=== PATIENT | male | born 1950 | race Caucasian/White ===

== ENCOUNTER 2017-05-21 19:03 | Inpatient (IN) | payer OTHER, SELFPAY ==
[2017-05-21 20:21] LABS: #Neutrophils 10.2 thou/uL (1.40-6.50); %Basophils 0.2 % (0.0-1.0); %Eosinophils 0.4 % (0.0-10.0); %Lymphocytes 14.9 % (21.0-51.0); %Monocytes 7.4 % (0.0-10.0); %Neutrophils 77.2 % (42.0-75.0); Hemoglobin 12.8 g/dL (14.0-18.0); Mean Corpuscular HGB CONC 31.8 g/dL (32.0-36.0); Mean Corpuscular Hemoglobin 28.8 pg (27.0-31.0); Mean Corpuscular Volume 90.5 fl (80.0-94.0); Mean Platelet Volume 7.6 fL (7.4-10.4); Platelet Count 304 thou/uL (130-400); RBC Distribution Width 12.2 % (11.5-14.5); Red Blood Cell (RBC) Count 4.43 mill/uL (4.70-6.10); White Blood Cell (WBC) Count 13.2 thou/uL (4.8-10.8)
[2017-05-21 20:42] LABS: ALT (SGPT) 53 U/L (8-55); AST (SGOT) 32 U/L (5-34); Albumin 3.2 g/dL (3.4-4.8); Alkaline Phosphatase 93 U/L (40-150); Anion Gap 14 mmol/L (10-20); BUN (Urea Nitrogen) 31 mg/dL (8.4-25.7); Bilirubin, Total 0.5 mg/dL (0.2-1.2); Calc. Creatinine Clearance 0 mL/min (70-130); Calcium 9.2 mg/dL (7.8-10.44); Carbon Dioxide 23 mmol/L (23-31); Chloride 102 mmol/L (98-107); Estimated GFR-MDRD 65; Globulin 4.6 g/dL (2.4-3.5); Glucose 107 mg/dL (80-115); Potassium 4.5 mmol/L (3.5-5.1); Protein, Total 7.8 g/dL (5.8-8.1); Sodium 134 mmol/L (136-145)
[2017-05-21 20:50] LABS: INR-International Normal Ratio 1.1; PTT 31.1 SEC (22.9-36.1); Prothrombin Time 14.4 SEC (12.0-14.7)
[2017-05-21] MEDS ORDERED: Pantoprazole 40 MG VIAL ONE ×2 (21:45→22:10)
[2017-05-21] MEDS ORDERED: Pantoprazole 80 MG, Admixture Fee 1 EACH in Sodium Chloride 0.9% 100 ML IVP SCH (22:30)
[2017-05-22] MEDS ORDERED: Ondansetron HCl/PF 4 MG/2 ML Vial IVP PRN ×2 (00:32→02:16)
[2017-05-22] MEDS ORDERED: Dextrose 5 % And 0.9 % NaCl 1,000 ML IV SCH (00:32)
[2017-05-22] MEDS ORDERED: Ondansetron ODT 4 MG TAB SL PRN (00:32)
[2017-05-22 00:41] VITALS: BMI 25.4
[2017-05-22] MEDS: Sodium Chloride 0.9% 1,000 ML IV SCH ×3 (04:00→19:52)
[2017-05-22 05:16] LABS: #Lymphocytes 3.5 thou/uL (1.20-3.40); #Monocytes 0.6 thou/uL (0.11-0.59); #Neutrophils 4.6 thou/uL (1.40-6.50); %Basophils 0.2 % (0.0-1.0); %Eosinophils 0.4 % (0.0-10.0); %Monocytes 6.9 % (0.0-10.0); %Neutrophils 52.4 % (42.0-75.0); Hemoglobin 9.8 g/dL (14.0-18.0); Mean Corpuscular HGB CONC 32.2 g/dL (32.0-36.0); Mean Corpuscular Volume 90.2 fl (80.0-94.0); Mean Platelet Volume 7.6 fL (7.4-10.4); Platelet Count 211 thou/uL (130-400); RBC Distribution Width 12.1 % (11.5-14.5); Red Blood Cell (RBC) Count 3.37 mill/uL (4.70-6.10); White Blood Cell (WBC) Count 8.7 thou/uL (4.8-10.8)
[2017-05-22 05:24] LABS: ALT (SGPT) 33 U/L (8-55); AST (SGOT) 19 U/L (5-34); Albumin 2.6 g/dL (3.4-4.8); Alkaline Phosphatase 66 U/L (40-150); Anion Gap 9 mmol/L (10-20); BUN (Urea Nitrogen) 32 mg/dL (8.4-25.7); Bilirubin, Total 0.2 mg/dL (0.2-1.2); Calc. Creatinine Clearance 98 mL/min (70-130); Carbon Dioxide 23 mmol/L (23-31); Chloride 109 mmol/L (98-107); Estimated GFR-MDRD 86; Globulin 3.3 g/dL (2.4-3.5); Glucose 80 mg/dL (80-115); Potassium 4.3 mmol/L (3.5-5.1); Protein, Total 5.9 g/dL (5.8-8.1); Sodium 137 mmol/L (136-145)
--- NOTE | 2017-05-22 07:21 | HP ---
PRIMARY CARE PHYSICIAN: Dr. Azul CHIEF COMPLAINT: Vomiting blood. HISTORY OF PRESENT ILLNESS: Mr. Lazo is a pleasant 66-year-old male who came to [facility] emergency department after vomiting dark blood 2 times. The first time he said it looked kind of like coffee grounds, the second time it was more bloody and darker blood. He has had one bowel movem ent that looked melanotic and turned the water in the toilet red. He denies any fever, chills, chest pain or shortness of breath. He denies any abdominal pain, he does have a history of psoriatic arthritis and has had a recent flar e the last week that he took some Naprosyn or ibuprofen for interchanging. Workup in the emergency department showed a hemoglobin 12.8, down from 14+ a few months ago. BUN was elevated at 31, he was tachycardic initially on presentation at 119, improved to 97 with IV fluids. Gastric occult blood testing was positive for blood. We were subsequently called for admission. In the emergency room, he got [address] Cummins from GI was consulted and recommended Protonix drip and that was started. PAST MEDICAL HISTORY: 1. Psoriatic arthritis. 2. Coronary artery disease status post CRUST SORTER and stent placement 10 years ago with no further problems . 3. Hypertension. 4. Athlete's foot/tinea pedis. 5. Hyperlipidemia. 6. Benign prostatic hypertrophy. PAST SURGICAL HISTORY: PTCA with stent placement, some 10 years ago. HOME MEDICATIONS: 1. Tamsulosin 0.4 mg p.o. daily. 2. Aspirin 81 mg daily. 3. Lisinopril/HCTZ 20/12.5 daily. 4. Terbinafine 250 mg daily as needed for athlete's foot. 5. Atorvastatin 40 mg p.o. at bedtime. ALLERGIES: CODEINE causes him to be wired. SULFA causes nausea and vomiting. FAMILY HISTORY: Significant for dad with coronary artery disease and cancer. Mom had diabetes angelic willis type 2. SOCIAL HISTORY: Negative for habits x3. He did smoke basically 2 packs per day for some 35 years an d quit under a year ago. REVIEW OF SYSTEMS: A 10-point review of systems was performed and negative for all other systems exc ept as noted per HPI. PHYSICAL EXAMINATION: VITAL SIGNS: Temperature 97.2, pulse 119 down to 97, blood pressure 123/67, respiratory 18, satting 95% on room air. GENERAL: He is awake. He is alert. He is oriented x3. He is a well-developed, well-nourished male who appears to be in no distress. HEENT: Normocephalic, atraumatic. Pupils equal, round, and reactive to light bilaterally, mucous me mbranes are moist without visible lesions or thrush. NECK: Supple, without lymphadenopathy, no JVD, no thyromegaly. LUNGS: Clear. He has no wheezing, no rales, no rhonchi. No prolonged expiratory phase. There is g ood air movement. Symmetrical chest excursion. CARDIOVASCULAR: He is slightly tachycardic, but regular. He has normal S1 and S2. I did not apprec iate murmurs. ABDOMEN: Soft, is nontender, nondistended, no masses, no rebound, rigidity or guarding. EXTREMITIES: No edema. SKIN: Warm, moist, well perfused. There are no rashes, no lesions. MUSCULOSKELETAL: Normal to inspection. He has no acute inflamed arthritis, no palpable effusions. NEUROLOGIC: Cranial nerves II-XII grossly intact. He has no focal neurologic deficits. He has norm al speech pattern and 5/5 strength. LABORATORY DATA: Sodium 134, potassium 4.5, chloride 102, bicarbonate 23, BUN 31, creatinine 1.14, g lucose 107, calcium 9.2. Liver functions are normal. Albumin is a little low at 3.2. INR is 1.1 an d CBC showed white count 13.2, hemoglobin of 12.8, hematocrit of 40.1, platelet count 304,000. His w jammie blood cell count does have a normal differential. RADIOGRAPHIC STUDIES: None. ASSESSMENT AND PLAN: 1. Hematemesis, the patient has a recent spike in his nonsteroidal anti-inflammatory drug usage due to his recent inflammatory arthritis. He does not take any acid suppression, denies any abdominal pa in. Suspect he has gastritis or some kind of a gastric type ulcer. Dr. Cummins has been consulted. W e will get serial H&Hs, and will follow up with Dr. Cummins's recommendations. 2. Acute blood loss anemia: The patient was in normal range a few months ago, now down to 12.8. I expect it to be lower as he gets more hydration done. We will continue to follow. 3. History of psoriatic arthritis. 4. History of coronary artery disease, asymptomatic. 5. Benign prostatic hypertrophy, on tamsulosin, which we will continue. 6. Hypertension, lisinopril/HCTZ, we will continue. 7. Hyperlipidemia on atorvastatin, we will continue.
[2017-05-22] MEDS: Pantoprazole 80 MG in Sodium Chloride 0.9% 100 ML IVP SCH ×2 (08:19→19:52)
--- NOTE | 2017-05-22 11:59 | OP ---
DATE OF PROCEDURE: 05/22/2017 PROCEDURE: Esophagogastroduodenoscopy with control of hemorrhage and biopsy. PREOPERATIVE DIAGNOSIS: Upper gastrointestinal bleed. OPERATIVE NOTE: Informed consent was obtained from the patient. He was sedated with total intraveno us anesthesia. The bite block was placed and the endoscope was advanced easily to the second portion of the duodenum and retroflexion was performed in the stomach. The esophagus was normal. The GE ju nction was normal. The stomach had a large 4 cm ulcer in the anterior antrum. This had a large broa d based fibrotic adherent clot in the base of ulcer. The edges of the ulcer were injected with epine phrine 1:10,000 with 1 mL per quadrant in four quadrants. The ulcer base was then washed extensively with irrigation; however, the clot would not dislodge. The clot was suctioned with the tip of the e ndoscope and again, the clot remained adherent. This was a fibrous appearing clot and did not appear particularly fresh. There were no focal areas to suggest one particular area to focus on indicated underlying vessel for electrocautery. The edges of the ulcer were biopsied and also biopsies were ob tained from the antrum and body to rule out H. pylori. The ulcer edges were biopsied to rule out mal ignancy; however, the ulcer itself does not appear malignant. The pylorus and first and second porti ons of the duodenum were normal. IMPRESSION: 1. Large 4 cm ulcer in the anterior antrum. There was an adherent fibrotic clot broadbased in the u lcer. The ulcer was injected with epinephrine and the clot was attempted to be dislodged with irriga tion and suction; however, the clot remained adherent. No focal vessel underneath could therefore be identified for definitive treatment with cautery. Biopsies were obtained from the ulcer edge to rul e out malignancy. Biopsies were obtained from the stomach, antrum and body to rule out H. pylori. 2. Otherwise normal esophagogastroduodenoscopy. RECOMMENDATIONS: 1. Await histopathology. 2. Continue proton pump inhibitor IV drip for 72 hours as definitive cautery to the underlying vesse l could not be achieved. 3. Repeat EGD in 4-6 weeks to verify ulcer healing. Consider repeat EGD in 2-3 days to reassess [facility] rebleeding risk before discharge. 4. Start clear liquid diet today.
--- NOTE | 2017-05-22 12:10 | CON ---
DATE OF CONSULTATION: 05/22/2017 CHIEF COMPLAINT: Vomited blood. HISTORY OF PRESENT ILLNESS: Mr. Lazo is a 66-year-old man who yesterday morning vomited coffee isabela und material. He was riding in the car on the way home and then vomited again on the side of the sushma d, and did not see the color of the emesis. Later in the afternoon, he vomited again and at this samy e, this was a large amount of red blood. He felt dizzy and lightheaded and had to lie down on the fl oor so that he would not pass out. He came to the emergency room, he was found to be tachycardic and he received a couple liters of saline with symptomatic improvement. He had two bowel movements sinc e admission to the hospital, which was black. He feels much better now. He still has some epigastri c burning abdominal pain which has been present for the last 2 days. He takes occasional Aleve aroun d once per month for psoriatic arthritis. No other NSAIDs. He does take aspirin 81 mg daily. PAST MEDICAL HISTORY: 1. Psoriatic arthritis. 2. Coronary artery disease. He had stent placement to the RCA 10 years ago. 3. Hypertension. 4. Hyperlipidemia. 5. BPH. 6. Tinea pedis. PAST SURGICAL HISTORY: Coronary stent placement. FAMILY HISTORY: Positive for lung cancer in his father. SOCIAL HISTORY: Quit smoking 1 year ago, but smoked 2 packs per day prior to that. No alcohol or dr ugs. ALLERGIES: CODEINE and SULFA. OUTPATIENT MEDICATIONS: Aspirin 81 mg daily, Flomax, lisinopril with hydrochlorothiazide, terbinafin e, and atorvastatin. REVIEW OF SYSTEMS: Negative x10 systems reviewed except as stated in the history of present illness. PHYSICAL EXAMINATION: VITAL SIGNS: Temperature 98.1, pulse 88 today. He was tachycardic in 110s on presentation to the ER , blood pressure 124/59. GENERAL: He is in no acute distress, alert and oriented x3. HEENT: Eyes have no scleral icterus. OROPHARYNX: Clear without lesions. NECK: No cervical or supraclavicular lymphadenopathy. NEUROLOGIC: Cranial nerves are grossly intact. LUNGS: Clear to auscultation bilaterally. HEART: Regular rate and rhythm without murmur. ABDOMEN: Soft, minimal tenderness in the epigastric region without guarding. Bowel sounds are prese nt. EXTREMITIES: No lower extremity edema. LABORATORY DATA: White blood cell count 8.7, hemoglobin on presentation was 12.8 down to 9.8 today, platelets 211. INR 1.1, BUN 32, creatinine 0.89, bilirubin 0.2, AST 19, ALT 33, alkaline phosphatase 66, albumin 2.6. IMPRESSION: 1. Acute upper gastrointestinal bleed with hemodynamic compromise with presyncopal episode and tachy cardia on presentation. Symptomatically and hemodynamically, he improved after normal saline bolus. He was started on proton pump inhibitor drip last night. He is feeling much better this morning. H e takes occasional NSAIDs, but not enough to expect source for expected peptic ulcer. He does take a spirin 81 mg daily. 2. Anemia with acute blood loss. 3. Coronary artery disease on aspirin 81 mg daily. 4. Hypoalbuminemia of undetermined etiology at this time. RECOMMENDATIONS: 1. Proton pump inhibitor drip. 2. Esophagogastroduodenoscopy today.
[2017-05-22] MEDS ORDERED: Lidocaine 1% PF 5 ML VIAL ONE (12:12)
[2017-05-22] MEDS ORDERED: Propofol 200 MG/20 ML VIAL ONE (12:12)
--- NOTE | 2017-05-22 13:07 | PDOC.PN ---
- Subjective Encounter Start Date: 05/22/17 Encounter Start Time: 12:00 Subjective: feels better, no sob or abd pain -: no nausea - Objective Resuscitation Status: Resuscitation Status FULL:Full Resuscitation MAR Reviewed: Yes Vital Signs & Weight: Vital Signs (12 hours) Temp Pulse Resp BP Pulse Ox 05/22/17 12:12 98.3 F 85 20 180/77 H 100 05/22/17 08:19 98.1 F 88 16 97 05/22/17 07:15 98.1 F 88 16 124/59 L 97 05/22/17 05:42 98.8 F 87 16 05/22/17 04:01 98.8 F 87 16 117/58 L 97 Weight Weight 182 lb 4.8 oz I&O: 05/21/17 05/22/17 05/23/17 06:59 06:59 06:59 Intake Total 58 Balance 58 Result Diagrams: 05/23/17 04:53 05/23/17 04:53 Phys Exam - Physical Examination Constitutional: NAD HEENT: PERRLA, moist MMs Neck: no JVD, supple Respiratory: no wheezing, no rales Cardiovascular: RRR, no significant murmur Gastrointestinal: soft, non-tender, no distention, positive bowel sounds Musculoskeletal: no edema, pulses present Neurological: non-focal, moves all 4 limbs Psychiatric: A&O x 3 Dx/Plan (1) PUD (peptic ulcer disease) Code(s): K27.9 - PEPTIC ULC, SITE UNSP, UNSP AC OR CHR, W/O HEMOR OR PERF Status: Acute (2) Acute blood loss anemia Code(s): D62 - ACUTE POSTHEMORRHAGIC ANEMIA Status: Acute (3) GI bleed Code(s): K92.2 - GASTROINTESTINAL HEMORRHAGE, UNSPECIFIED Status: Acute Qualifiers: GI bleed type/associated pathology: gastric ulcer Qualified Code(s): K25.4 - Chronic or unspecified gastric ulcer with hemorrhage (4) CAD (coronary artery disease) Code(s): I25.10 - ATHSCL HEART DISEASE OF [place] CORONARY ARTERY W/O ANG PCTRS Status: Chronic Qualifiers: Coronary Disease-Associated Artery/Lesion type: [place] artery [place] vs. transplanted heart: [place] heart (5) Hyperlipidemia Code(s): E78.5 - HYPERLIPIDEMIA, UNSPECIFIED Status: Chronic Qualifiers: Hyperlipidemia type: unspecified Qualified Code(s): E78.5 - Hyperlipidemia , unspecified (6) Hypertension Code(s): I10 - ESSENTIAL (PRIMARY) HYPERTENSION Status: Chronic Qualifiers: Hypertension type: essential hypertension Qualified Code(s): I10 - Essential (primary) hypertension - Plan had large ulcer in stomach with adherent clot -: on protonix iv drip -: clear liq diet -: hb around 10g * .
[2017-05-22 16:53] LABS: Hemoglobin 9.2 g/dL (14.0-18.0)
[2017-05-23] MEDS: Sodium Chloride 0.9% 1,000 ML IV SCH ×2 (01:54→07:53)
[2017-05-23] MEDS: Pantoprazole 80 MG in Sodium Chloride 0.9% 100 ML IVP SCH ×2 (04:44→15:53)
[2017-05-23 05:31] LABS: #Eosinphils 0.1 thou/uL (0.0-0.7); #Lymphocytes 2.4 thou/uL (1.20-3.40); #Monocytes 0.4 thou/uL (0.11-0.59); #Neutrophils 4.2 thou/uL (1.40-6.50); %Basophils 0.5 % (0.0-1.0); %Eosinophils 1.8 % (0.0-10.0); %Lymphocytes 34.1 % (21.0-51.0); %Neutrophils 58.7 % (42.0-75.0); Hemoglobin 9.2 g/dL (14.0-18.0); Mean Corpuscular HGB CONC 32.4 g/dL (32.0-36.0); Mean Corpuscular Hemoglobin 28.9 pg (27.0-31.0); Mean Corpuscular Volume 89.1 fl (80.0-94.0); Mean Platelet Volume 7.5 fL (7.4-10.4); Platelet Count 195 thou/uL (130-400); RBC Distribution Width 12.1 % (11.5-14.5); Red Blood Cell (RBC) Count 3.18 mill/uL (4.70-6.10); White Blood Cell (WBC) Count 7.1 thou/uL (4.8-10.8)
[2017-05-23 05:37] LABS: Anion Gap 9 mmol/L (10-20); BUN (Urea Nitrogen) 13 mg/dL (8.4-25.7); Calc. Creatinine Clearance 104 mL/min (70-130); Calcium 8.1 mg/dL (7.8-10.44); Carbon Dioxide 22 mmol/L (23-31); Chloride 109 mmol/L (98-107); Estimated GFR-MDRD Greater than 90; Glucose 80 mg/dL (80-115); Potassium 3.8 mmol/L (3.5-5.1); Sodium 136 mmol/L (136-145)
--- NOTE | 2017-05-23 12:24 | PDOC.PN ---
- Subjective Encounter Start Date: 05/23/17 Encounter Start Time: 10:30 Subjective: no abd pain or nausea -: no further bleeding - Objective Resuscitation Status: Resuscitation Status FULL:Full Resuscitation MAR Reviewed: Yes Vital Signs & Weight: Vital Signs (12 hours) Temp Pulse Resp BP Pulse Ox 05/23/17 10:15 98.1 F 89 18 129/76 96 05/23/17 08:00 98.8 F 86 18 05/23/17 07:32 98.3 F 83 16 121/63 95 05/23/17 04:40 98.8 F 86 18 118/58 L 96 Weight Weight 182 lb 4.8 oz I&O: 05/22/17 05/23/17 05/24/17 06:59 06:59 06:59 Intake Total 58 4736 Output Total 2690 Balance 58 2046 Result Diagrams: 05/23/17 04:53 05/23/17 04:53 Phys Exam - Physical Examination HEENT: PERRLA, moist MMs Neck: no JVD, supple Respiratory: no wheezing, no rales Cardiovascular: RRR, no significant murmur Gastrointestinal: soft, non-tender, no distention, positive bowel sounds Musculoskeletal: no edema, pulses present Neurological: non-focal, moves all 4 limbs Psychiatric: A&O x 3 Dx/Plan (1) PUD (peptic ulcer disease) Code(s): K27.9 - PEPTIC ULC, SITE UNSP, UNSP AC OR CHR, W/O HEMOR OR PERF Status: Acute (2) Acute blood loss anemia Code(s): D62 - ACUTE POSTHEMORRHAGIC ANEMIA Status: Acute (3) GI bleed Code(s): K92.2 - GASTROINTESTINAL HEMORRHAGE, UNSPECIFIED Status: Acute Qualifiers: GI bleed type/associated pathology: gastric ulcer Qualified Code(s): K25.4 - Chronic or unspecified gastric ulcer with hemorrhage (4) CAD (coronary artery disease) Code(s): I25.10 - ATHSCL HEART DISEASE OF [place] CORONARY ARTERY W/O ANG PCTRS Status: Chronic Qualifiers: Coronary Disease-Associated Artery/Lesion type: [place] artery [place] vs. transplanted heart: [place] heart (5) Hyperlipidemia Code(s): E78.5 - HYPERLIPIDEMIA, UNSPECIFIED Status: Chronic Qualifiers: Hyperlipidemia type: unspecified Qualified Code(s): E78.5 - Hyperlipidemia , unspecified (6) Hypertension Code(s): I10 - ESSENTIAL (PRIMARY) HYPERTENSION Status: Chronic Qualifiers: Hypertension type: essential hypertension Qualified Code(s): I10 - Essential (primary) hypertension - Plan is on protonix drip -: tolerating liq diet -: may dc iv fluids -: tx to med floor -: might have second look egd this admission * . Review of Systems - Medications/Allergies Allergies/Adverse Reactions: Allergies Allergy/AdvReac Type Severity Reaction Status Date / Time codeine Allergy Verified 05/22/17 00:32 Sulfa (Sulfonamide Allergy Verified 05/22/17 00:32 Antibiotics) sulfacetamide Allergy Verified 05/22/15 17:18 Medications: Current Medications Atorvastatin Calcium (Lipitor) 40 mg PO QPM [facility] Pantoprazole Sodium 80 mg/ (Sodium Chloride) 100 mls @ 10 mls/hr IVP INF [facility] Last Admin: 05/23/17 04:44 Dose: 100 mls Ondansetron HCl (Zofran) 4 mg IVP Q6H PRN PRN Reason: Nausea/Vomiting Sodium Chloride (Flush - Normal Saline) 10 ml IVF PRN PRN PRN Reason: Saline Flush Tamsulosin HCl (Flomax) 0.4 mg PO HS [facility]
--- NOTE | 2017-05-23 17:48 | PRG ---
DATE OF SERVICE: 05/23/2017 SUBJECTIVE: Mr. Lazo has no complaints. His abdominal pain is improved and he is tolerating a faiza id diet. OBJECTIVE: VITAL SIGNS: Temperature 98.3, pulse 90, blood pressure 135/78. GENERAL: He is in no acute distress. He is awake and alert. LUNGS: Clear to auscultation bilaterally. HEART: Regular rate and rhythm. ABDOMEN: Soft, nontender, nondistended, bowel sounds are present. EXTREMITIES: No lower extremity edema. LABORATORY DATA: Hemoglobin is 9.2. Creatinine 0.84. IMPRESSION: Large deep antral ulcer with a broad base adherent clot, which could not be dislodged at the time of EGD yesterday. RECOMMENDATIONS: Continue the proton pump inhibitor IV drip. This was started the night before. He is 48 hours into that infusion now. We will plan follow up EGD tomorrow to evaluate the ulcer base and rebleeding risk. If this base is cleared, then he could be discharged potentially tomorrow joao and plan repeat EGD in 4-6 weeks to verify ulcer healing.
[2017-05-23] MEDS: Atorvastatin Calcium 10 MG TAB PO SCH (21:31)
[2017-05-23] MEDS: Tamsulosin HCl 0.4 MG CAP PO SCH (21:31)
[2017-05-24] MEDS: Pantoprazole 80 MG in Sodium Chloride 0.9% 100 ML IVP SCH ×2 (00:01→21:37)
[2017-05-24] MEDS: Sodium Chloride 0.9% 1,000 ML IV SCH ×2 (00:01→19:59)
[2017-05-24 06:36] LABS: #Eosinphils 0.2 thou/uL (0.0-0.7); #Lymphocytes 2.8 thou/uL (1.20-3.40); #Monocytes 0.5 thou/uL (0.11-0.59); #Neutrophils 5.2 thou/uL (1.40-6.50); %Basophils 0.1 % (0.0-1.0); %Eosinophils 1.9 % (0.0-10.0); %Lymphocytes 32.6 % (21.0-51.0); %Monocytes 5.6 % (0.0-10.0); %Neutrophils 59.8 % (42.0-75.0); Hemoglobin 9.3 g/dL (14.0-18.0); Mean Corpuscular HGB CONC 33.1 g/dL (32.0-36.0); Mean Corpuscular Hemoglobin 29.3 pg (27.0-31.0); Mean Corpuscular Volume 88.7 fl (80.0-94.0); Mean Platelet Volume 7.4 fL (7.4-10.4); Platelet Count 224 thou/uL (130-400); Red Blood Cell (RBC) Count 3.18 mill/uL (4.70-6.10); White Blood Cell (WBC) Count 8.7 thou/uL (4.8-10.8)
[2017-05-24 06:47] LABS: Anion Gap 10 mmol/L (10-20); BUN (Urea Nitrogen) 10 mg/dL (8.4-25.7); Calc. Creatinine Clearance 86 mL/min (70-130); Calcium 8.5 mg/dL (7.8-10.44); Carbon Dioxide 24 mmol/L (23-31); Chloride 107 mmol/L (98-107); Estimated GFR-MDRD 74; Glucose 94 mg/dL (80-115); Potassium 3.9 mmol/L (3.5-5.1); Sodium 137 mmol/L (136-145)
[2017-05-24] MEDS ORDERED: Promethazine HCl 25 MG/ML VIAL SLOW IVP PRN (10:57)
[2017-05-24] MEDS ORDERED: Ondansetron HCl/PF 4 MG/2 ML Vial IVP PRN (10:57)
--- NOTE | 2017-05-24 12:33 | PDOC.PN ---
- Subjective Encounter Start Date: 05/24/17 Encounter Start Time: 08:45 Subjective: no abd pain, has passed some black stools no dianna blood - Objective Resuscitation Status: Resuscitation Status FULL:Full Resuscitation MAR Reviewed: Yes Vital Signs & Weight: Vital Signs (12 hours) Temp Pulse Resp BP Pulse Ox 05/24/17 08:00 97.9 F 88 20 95 05/24/17 07:35 97.9 F 88 20 126/73 96 05/24/17 05:00 97.9 F 95 16 124/79 95 05/24/17 01:41 98.1 F 92 18 131/71 96 Weight Weight 182 lb 4.8 oz I&O: 05/23/17 05/24/17 05/25/17 06:59 06:59 06:59 Intake Total 4736 690 Output Total 2690 Balance 6 690 Result Diagrams: 05/24/17 06:01 05/24/17 06:01 Phys Exam - Physical Examination HEENT: PERRLA, moist MMs Neck: no JVD, supple Respiratory: no wheezing, no rales Cardiovascular: RRR, no significant murmur Gastrointestinal: soft, non-tender, no distention, positive bowel sounds Musculoskeletal: no edema, pulses present Neurological: non-focal, moves all 4 limbs Psychiatric: normal affect, A&O x 3 Dx/Plan (1) PUD (peptic ulcer disease) Code(s): K27.9 - PEPTIC ULC, SITE UNSP, UNSP AC OR CHR, W/O HEMOR OR PERF Status: Acute (2) Acute blood loss anemia Code(s): D62 - ACUTE POSTHEMORRHAGIC ANEMIA Status: Acute (3) GI bleed Code(s): K92.2 - GASTROINTESTINAL HEMORRHAGE, UNSPECIFIED Status: Acute Qualifiers: GI bleed type/associated pathology: gastric ulcer Qualified Code(s): K25.4 - Chronic or unspecified gastric ulcer with hemorrhage (4) CAD (coronary artery disease) Code(s): I25.10 - ATHSCL HEART DISEASE OF [place] CORONARY ARTERY W/O ANG PCTRS Status: Chronic Qualifiers: Coronary Disease-Associated Artery/Lesion type: [place] artery [place] vs. transplanted heart: [place] heart (5) Hyperlipidemia Code(s): E78.5 - HYPERLIPIDEMIA, UNSPECIFIED Status: Chronic Qualifiers: Hyperlipidemia type: unspecified Qualified Code(s): E78.5 - Hyperlipidemia , unspecified (6) Hypertension Code(s): I10 - ESSENTIAL (PRIMARY) HYPERTENSION Status: Chronic Qualifiers: Hypertension type: essential hypertension Qualified Code(s): I10 - Essential (primary) hypertension - Plan is on protonix drip -: going for second look egd today -: if stable might go home this afternoon after egd per GI advice * . Review of Systems - Medications/Allergies Allergies/Adverse Reactions: Allergies Allergy/AdvReac Type Severity Reaction Status Date / Time codeine Allergy Verified 05/22/17 00:32 Sulfa (Sulfonamide Allergy Verified 05/22/17 00:32 Antibiotics) sulfacetamide Allergy Verified 05/22/15 17:18 Medications: Current Medications Atorvastatin Calcium (Lipitor) 40 mg PO QPM [facility] Last Admin: 05/23/17 21:31 Dose: 40 mg Fentanyl (Pacu-Sublimaze) 50 mcg SLOW IVP Q10MIN PRN PRN Reason: Moderate to Severe Pain (6-10) Stop: 05/24/17 13:57 Pantoprazole Sodium 80 mg/ (Sodium Chloride) 100 mls @ 10 mls/hr IVP INF [facility] Last Admin: 05/24/17 00:01 Dose: 100 mls Sodium Chloride (Normal Saline 0.9%) 1,000 mls @ 50 mls/hr IV .Q20H [facility] Last Admin: 05/24/17 00:01 Dose: 1,000 mls Ondansetron HCl (Zofran) 4 mg IVP Q6H PRN PRN Reason: Nausea/Vomiting Ondansetron HCl (Pacu-Zofran) 4 mg IVP ONE PRN PRN Reason: Nausea/Vomiting Stop: 05/24/17 13:57 Promethazine HCl (Pacu-Phenergan) 6.25 mg SLOW IVP ONE PRN PRN Reason: Nausea/Vomiting Stop: 05/24/17 13:57 Sodium Chloride (Flush - Normal Saline) 10 ml IVF PRN PRN PRN Reason: Saline Flush Tamsulosin HCl (Flomax) 0.4 mg PO HS [facility] Last Admin: 05/23/17 21:31 Dose: 0.4 mg
[2017-05-24] MEDS ORDERED: Lidocaine 1% PF 5 ML VIAL ONE (13:00)
--- NOTE | 2017-05-24 13:02 | OP ---
DATE OF PROCEDURE: 05/24/2017 OPERATIVE NOTE: Esophagogastroduodenoscopy with control of hemorrhage. INDICATION: Gastric ulceration, upper gastrointestinal bleed. DESCRIPTION OF PROCEDURE: After discussing the risks and benefits of the procedure including risks of bleeding, infection, reaction to anesthesia, perforation and/or pain, informed consent was obtained. The patient was then taken to the endoscopy suite where deep sedation was administered via propofol and anesthesia support. The standard gastroscope was then advanced into the mouth with intubation of the esophagus, stomach, and duodenum with the findings listed below. FINDINGS: Duodenum: Normal appearing mucosa was seen in the second portion of the duodenum. Mild to moderate patchy erythema was seen in the duodenal bulb without associated erosions or ulcerations or active/recent bleeding. No biopsies were taken given biopsies previously taken on prior procedure. Stomach: Multiple small erosions were seen in the distal gastric body and gastric antrum. Approximately 4-5, 1-2 mm clean based ulcerations were seen in the antrum without any evidence of active/recent bleeding or high risk stigmata. However, a large 2-2.5 cm ulceration was seen in the gastric antrum along the anterior portion of the stomach. Careful inspection of this ulceration revealed that there was no longer an adherent clot overlying the ulceration. The ulceration itself was largely clean based, cratered, with no evidence of visible vessel. However, along the inferior aspect of the ulcer was a small red spot and given the increased risk of bleeding from this type of stigmata, bipolar cautery was performed. Using bipolar cautery, direct pressure and cautery was applied to the red spot with good hemostasis achieved afterward. Otherwise, the remainder of the stomach, including the gastric cardia, fundus and the remainder of the incisura was normal without any other associated ulcerations, erosions, active/recent bleeding, or mass lesions. Esophagus: Normal appearing mucosa was seen in the proximal, mid and distal esophagus without evidence of esophagitis, ulcerations, active/recent bleeding or mass lesions. The diaphragmatic pinch and GE junction were both well seen at approximately 41 cm past the incisors. IMPRESSION: 1. Large 2-2.5 cm ulcer along the anterior wall of the gastric antrum. The ulceration was clean based, cratered, but did display high risk stigmata along the inferior aspect, now status post bipolar cautery and good hemostasis. 2. Multiple small ulcerations were also seen in the distal gastric body and gastric antrum. RECOMMENDATIONS: 1. Follow up with histopathology from biopsies obtained during last EGD. 2. Can transfer the patient to PPI 40 mg twice daily. 3. We would repeat EGD in 6-8 weeks to verify ulcer healing. 4. Can start the patient on clear liquid diet today and advance diet as tolerated. 5. We would hold patient in hospital overnight given increased risk of rebleeding from this lesion. If no evidence of further rebleeding within the next 24 hours, could consider discharge from the hospital. [facility]
[2017-05-24] MEDS: Tamsulosin HCl 0.4 MG CAP PO SCH (19:59)
[2017-05-24] MEDS: Atorvastatin Calcium 10 MG TAB PO SCH (19:59)
[2017-05-25 06:40] LABS: #Eosinphils 0.2 thou/uL (0.0-0.7); #Lymphocytes 2.6 thou/uL (1.20-3.40); #Monocytes 0.6 thou/uL (0.11-0.59); #Neutrophils 5.4 thou/uL (1.40-6.50); %Basophils 0.2 % (0.0-1.0); %Eosinophils 1.8 % (0.0-10.0); %Lymphocytes 29.9 % (21.0-51.0); %Monocytes 6.5 % (0.0-10.0); %Neutrophils 61.6 % (42.0-75.0); Anion Gap 11 mmol/L (10-20); BUN (Urea Nitrogen) 9 mg/dL (8.4-25.7); Calc. Creatinine Clearance 86 mL/min (70-130); Calcium 8.6 mg/dL (7.8-10.44); Carbon Dioxide 24 mmol/L (23-31); Chloride 106 mmol/L (98-107); Estimated GFR-MDRD 74; Glucose 91 mg/dL (80-115); Hemoglobin 9.1 g/dL (14.0-18.0); Mean Corpuscular HGB CONC 33.1 g/dL (32.0-36.0); Mean Corpuscular Hemoglobin 29.3 pg (27.0-31.0); Mean Corpuscular Volume 88.4 fl (80.0-94.0); Mean Platelet Volume 7.6 fL (7.4-10.4); Platelet Count 235 thou/uL (130-400); Potassium 4.2 mmol/L (3.5-5.1); Red Blood Cell (RBC) Count 3.09 mill/uL (4.70-6.10); Sodium 137 mmol/L (136-145); White Blood Cell (WBC) Count 8.8 thou/uL (4.8-10.8)
[2017-05-25 12:18] VITALS: BP 117/85; TEMP 98.8
--- NOTE | 2017-05-25 12:41 | PDOC.PN ---
- Subjective Encounter Start Date: 05/25/17 Encounter Start Time: 10:35 Subjective: no abd pain -: feels better, had breakfast this am - Objective Resuscitation Status: Resuscitation Status FULL:Full Resuscitation MAR Reviewed: Yes Vital Signs & Weight: Vital Signs (12 hours) Temp Pulse Resp BP Pulse Ox 05/25/17 12:17 98.8 F 93 16 117/85 99 05/25/17 08:19 98.2 F 96 16 141/72 H 96 05/25/17 03:52 98.6 F 92 18 108/62 95 Weight Weight 182 lb 4.8 oz I&O: 05/24/17 05/25/17 05/26/17 06:59 06:59 06:59 Intake Total 690 2425 Output Total 1300 Balance 690 1125 Result Diagrams: 05/25/17 05:42 05/25/17 05:42 Phys Exam - Physical Examination HEENT: PERRLA, moist MMs Neck: no JVD, supple Respiratory: no wheezing, no rales Cardiovascular: RRR, no significant murmur Gastrointestinal: soft, non-tender, positive bowel sounds Musculoskeletal: no edema, pulses present Neurological: non-focal, moves all 4 limbs Psychiatric: normal affect, A&O x 3 Dx/Plan (1) PUD (peptic ulcer disease) Code(s): K27.9 - PEPTIC ULC, SITE UNSP, UNSP AC OR CHR, W/O HEMOR OR PERF Status: Acute (2) Acute blood loss anemia Code(s): D62 - ACUTE POSTHEMORRHAGIC ANEMIA Status: Acute (3) GI bleed Code(s): K92.2 - GASTROINTESTINAL HEMORRHAGE, UNSPECIFIED Status: Resolved Qualifiers: GI bleed type/associated pathology: gastric ulcer Qualified Code(s): K25.4 - Chronic or unspecified gastric ulcer with hemorrhage (4) CAD (coronary artery disease) Code(s): I25.10 - ATHSCL HEART DISEASE OF [place] CORONARY ARTERY W/O ANG PCTRS Status: Chronic Qualifiers: Coronary Disease-Associated Artery/Lesion type: [place] artery [place] vs. transplanted heart: [place] heart (5) Hyperlipidemia Code(s): E78.5 - HYPERLIPIDEMIA, UNSPECIFIED Status: Chronic Qualifiers: Hyperlipidemia type: unspecified Qualified Code(s): E78.5 - Hyperlipidemia , unspecified (6) Hypertension Code(s): I10 - ESSENTIAL (PRIMARY) HYPERTENSION Status: Chronic Qualifiers: Hypertension type: essential hypertension Qualified Code(s): I10 - Essential (primary) hypertension - Plan h/h stable -: on oral protonix bid -: may dc home if ok with GI -: rescope in 4-6 weeks as outpt -: histopath shows no h.pylori * . Review of Systems - Medications/Allergies Allergies/Adverse Reactions: Allergies Allergy/AdvReac Type Severity Reaction Status Date / Time codeine Allergy Verified 05/22/17 00:32 Sulfa (Sulfonamide Allergy Verified 05/22/17 00:32 Antibiotics) sulfacetamide Allergy Verified 05/22/15 17:18 Medications: Current Medications Atorvastatin Calcium (Lipitor) 40 mg PO QPM [facility] Last Admin: 05/24/17 19:59 Dose: 40 mg Ondansetron HCl (Zofran) 4 mg IVP Q6H PRN PRN Reason: Nausea/Vomiting Pantoprazole Sodium (Protonix) 40 mg PO BID ROMAN Pantoprazole Sodium (Protonix) 40 mg PO NOW [facility] Stop: 05/25/17 14:00 Sodium Chloride (Flush - Normal Saline) 10 ml IVF PRN PRN PRN Reason: Saline Flush Tamsulosin HCl (Flomax) 0.4 mg PO HS [facility] Last Admin: 05/24/17 19:59 Dose: 0.4 mg
--- NOTE | 2017-05-25 15:56 | PRG ---
DATE OF SERVICE: 05/25/2017 SUBJECTIVE: Mr. Lazo has had no further abdominal pain. No further overt bleeding. He is tolerat ing a solid diet. OBJECTIVE: ABDOMEN: Soft, nontender and nondistended. Bowel sounds are present. IMPRESSION: Gastric ulcer, presenting with acute gastrointestinal bleed, status post cautery b ase of the ulcer yesterday. RECOMMENDATIONS: 1. He should be ready to discharge home today on oral proton pump inhibitor. 2. We will repeat EGD in 4-6 weeks.
--- NOTE | 2017-05-26 14:55 | DIS ---
DATE OF ADMISSION: 05/22/2017 DATE OF DISCHARGE: 05/25/2017 PRIMARY DISCHARGE DIAGNOSES: Gastrointestinal bleed secondary to peptic ulcer, acute blood loss anemia. SECONDARY DISCHARGE DIAGNOSES: Coronary artery disease, dyslipidemia, and hypertension. PROCEDURES DONE DURING HOSPITALIZATION: The patient has had upper endoscopy done on 05/22/[address] Guevara Cummins, which showed large 4 cm ulcer in the anterior antrum. There was an adherent fibrotic clot which was broad based in the ulcer. Attempts to dislodge the clot were not successful. No focal vessels could be identified or seen. He has had a repeat upper endoscopy done on 05/24/[address] Merlin Atkins, which showed large 2-2.5 cm ulcer along the anterior wall of the gastric antrum. The ulceration was clean based, cratered, but did display high risk stigmata along the inferior aspect, now status post bipolar cautery and good hemostasis. Multiple small ulcerations were also seen in the distal gastric body and gastric antrum, hemoglobin and hematocrit 9 and 27, platelet count is 235, initial hemoglobin and hematocrit was 12 and 40 on admission. INR 1.1. Discharge BUN and creatinine is 9 and 1.0. Admitting BUN and creatinine was 31 and 1.1. Histopathology from antral biopsy shows no H. pylori organisms. There was reactive gastropathy. DISCHARGE MEDICATIONS: Patient to continue Protonix 40 mg p.o. twice daily for a total of 45 days, Flomax 0.4 mg p.o. at bedtime, Prinzide 20/12.5 mg p.o. at bedtime, atorvastatin 40 mg p.o. q.p.m. ALLERGIES: CODEINE and SULFA. INPATIENT CONSULTS: Dr. Guevara Cummins/Dr. Merlin Quintanilla for Gastroenterology. DISCHARGE PLAN: Patient to follow up with primary care physician in one week and Dr. Guevara Cummins in 4-6 weeks for repeat upper endoscopy to see for healing of the ulcers. BRIEF COURSE DURING HOSPITALIZATION: The patient initially got admitted after he had hematemesis x2. His initial hemoglobin was 12. Patient had upper endoscopy done by Dr. Guevara Cummins, which showed a large ulcer with adherent clot. He was on Protonix drip. He had a relook upper endoscopy done which showed ulcer which was clean based and had cauterization done. He also was found to have had multiple small ulcers in the distal gastric body and antrum. His Protonix was switched over to twice daily p.o. He is tolerating oral solid diet prior to discharge. The patient is ambulating in the room. He needs to follow up with Dr. Guevara Cummins in 4-6 weeks for a repeat endoscopy to see for complete healing. His antral biopsy was negative for H. pylori. He has remained hemodynamically stable and will be shortly discharged home. Please see a [id number] documentation on [facility] for the day of discharge. REVA
== END 2017-05-25 15:32 | disposition home or self-care (01) | DRG 378 ==
LOC: ERS 19:03 → ERHOLD 23:08 → 2SW 05-22 00:20 → SURG A 05-23 10:17
PROVIDERS: ADMIT Internal Medicine Infectious Disease; ATTEND Internal Medicine Infectious Disease
PROC: 0DB68ZX Excision of Stomach, Via Natural or Artificial Opening Endoscopic, Diagnostic (ICD-10-PCS; 2017-05-22)
PROC: 0W3P8ZZ Control Bleeding in Gastrointestinal Tract, Via Natural or Artificial Opening Endoscopic (ICD-10-PCS; 2017-05-22)
PROC: 0W3P8ZZ Control Bleeding in Gastrointestinal Tract, Via Natural or Artificial Opening Endoscopic (ICD-10-PCS; principal; 2017-05-24)
DX: K25.4 Chronic or unspecified gastric ulcer with hemorrhage (principal); D62 Acute posthemorrhagic anemia; I74.8 Embolism and thrombosis of other arteries; L40.50 Arthropathic psoriasis, unspecified; E78.5 Hyperlipidemia, unspecified; I25.10 Atherosclerotic heart disease of native coronary artery without angina pectoris; I10 Essential (primary) hypertension; K31.9 Disease of stomach and duodenum, unspecified; Z95.5 Presence of coronary angioplasty implant and graft; Z87.891 Personal history of nicotine dependence; N40.0 Benign prostatic hyperplasia without lower urinary tract symptoms; R00.0 Tachycardia, unspecified
CPT/HCPCS: 36415; 80048; 80053; 82271; 85025; 85610; 85730; 86850; 86900; 86901; 88305; 88312; 93005; 96361; 96365; 96376; C9113; J2001; J2704; J7050

== ENCOUNTER 2019-12-11 13:22 | Outpatient (CLI) | payer BC ==
--- NOTE | 2019-12-11 15:34 | MRI ---
EXAM: MRI of the brain without and with contrast HISTORY: Memory loss COMPARISON: 05/23/2015 TECHNIQUE: Multiplanar multisequence MR images were obtained of the brain without and with IV contras t. FINDINGS: There is mild diffuse cerebral atrophy. The brain demonstrates normal signal intensity on all obtaine d sequences. No restricted diffusion. No abnormal enhancement. No hydronephrosis. No extra-axial fluid collection or intracranial hemorrhage. The expected flow voids are present. Corpus callosum, pituitary, and craniocervical junction are within normal limits. The calvarium and overlying soft tissues are unremarkable. A mucus retention cyst is seen in the right maxillary sinus. The other paranasal sinuses and mastoid air cells are well aerated. IMPRESSION: Mild cerebral atrophy without acute intracranial abnormality
== END 2019-12-11 13:23 | disposition home or self-care (01) ==
LOC: SCSMRI 13:22
PROVIDERS: ATTEND Psychiatry & Neurology Neurology
DX: G31.1 Senile degeneration of brain, not elsewhere classified (principal)
CPT/HCPCS: 70553; 82565

== ENCOUNTER 2022-04-07 19:30 | Observation (INO) | payer BC, SELFPAY ==
[2022-04-07 20:17] LABS: #Basophils 0.1 thou/uL (0.0-0.2); #Eosinphils 0.2 thou/uL (0.0-0.7); #Lymphocytes 2.6 thou/uL (1.20-3.40); #Monocytes 0.9 thou/uL (0.11-0.59); #Neutrophils 6.3 thou/uL (1.40-6.50); %Basophils 0.8 % (0.0-1.0); %Lymphocytes 25.4 % (21.0-51.0); %Monocytes 9.2 % (0.0-10.0); %Neutrophils 62.6 % (42.0-75.0); Hemoglobin 16.5 g/dL (14.0-18.0); Mean Corpuscular HGB CONC 32.2 g/dL (32.0-36.0); Mean Corpuscular Hemoglobin 29.3 pg (27.0-31.0); Mean Platelet Volume 8.3 fL (7.4-10.4); Platelet Count 215 10x3/uL (130-400); RBC Distribution Width 12.5 % (11.5-14.5); Red Blood Cell (RBC) Count 5.65 mill/uL (4.70-6.10); White Blood Cell (WBC) Count 10.1 10x3/uL (4.8-10.8)
[2022-04-07 20:27] LABS: ALT (SGPT) 37 U/L (8-55); AST (SGOT) 24 U/L (5-34); Albumin 4.2 g/dL (3.4-4.8); Alkaline Phosphatase 92 U/L (40-110); Anion Gap 11 mmol/L (10-20); BUN (Urea Nitrogen) 13 mg/dL (8.4-25.7); Bilirubin, Total 0.6 mg/dL (0.2-1.2); Calc. Creatinine Clearance 0 mL/min (70-130); Calcium 10.1 mg/dL (7.8-10.44); Carbon Dioxide 29 mmol/L (23-31); Chloride 102 mmol/L (98-107); Estimated GFR 53; Globulin 3.9 g/dL (2.4-3.5); Glucose 87 mg/dL (80-115); Potassium 3.7 mmol/L (3.5-5.1); Protein, Total 8.1 g/dL (5.8-8.1); Sodium 138 mmol/L (136-145)
[2022-04-07] MEDS ORDERED: Ondansetron ODT 4 MG TAB PO PRN (21:36)
[2022-04-07] MEDS ORDERED: Ondansetron PF 4 MG/2 ML Vial IVP PRN (21:36)
[2022-04-07] MEDS ORDERED: Acetaminophen 325 MG TAB PO PRN (21:36)
[2022-04-07] MEDS ORDERED: Aspirin 325 mg Enteric Coated Tablet PO SCH (22:00)
[2022-04-07 22:21] LABS: Bacteria/HPF None Seen HPF (None Seen); Bilirubin Negative (Negative); Blood, Urine Negative (Negative); Clarity Clear (Clear); Glucose, Urine (Dipstick) Normal (Negative); Ketone, Urine Negative (Negative); Leukocyte 25 Leu/uL (Negative); Nitrite Negative (Negative); Protein, Urine (Dipstick) Negative (Neg-Trace); RBC/HPF 0-3 HPF (0-3); Squamous Epithelial None Seen HPF (0-3); Urobilinogen Normal mg/dL (Less than 2); WBC/HPF 0-3 HPF (0-3); pH, Urine 5.5 (5.0-9.0)
[2022-04-08 01:30] VITALS: BMI 29.5
[2022-04-08 05:14] LABS: #Basophils 0.1 thou/uL (0.0-0.2); #Eosinphils 0.2 thou/uL (0.0-0.7); #Lymphocytes 2.5 thou/uL (1.20-3.40); #Neutrophils 5.7 thou/uL (1.40-6.50); %Basophils 0.7 % (0.0-1.0); %Eosinophils 2.3 % (0.0-10.0); %Lymphocytes 26.6 % (21.0-51.0); %Monocytes 10.9 % (0.0-10.0); %Neutrophils 59.6 % (42.0-75.0); Hemoglobin 14.8 g/dL (14.0-18.0); Mean Corpuscular HGB CONC 32.2 g/dL (32.0-36.0); Mean Corpuscular Hemoglobin 29.4 pg (27.0-31.0); Mean Corpuscular Volume 91.1 fl (78.0-98.0); Mean Platelet Volume 8.1 fL (7.4-10.4); Platelet Count 198 10x3/uL (130-400); RBC Distribution Width 12.5 % (11.5-14.5); Red Blood Cell (RBC) Count 5.02 mill/uL (4.70-6.10); White Blood Cell (WBC) Count 9.5 10x3/uL (4.8-10.8)
[2022-04-08 05:25] LABS: Hemoglobin A1c 5.2 % (4.0-6.0)
[2022-04-08 05:50] LABS: ALT (SGPT) 31 U/L (8-55); AST (SGOT) 20 U/L (5-34); Albumin 3.3 g/dL (3.4-4.8); Alkaline Phosphatase 74 U/L (40-110); Anion Gap 9 mmol/L (10-20); BUN (Urea Nitrogen) 13 mg/dL (8.4-25.7); Bilirubin, Total 0.5 mg/dL (0.2-1.2); Calc. Creatinine Clearance 62 mL/min (70-130); Calcium 9.1 mg/dL (7.8-10.44); Carbon Dioxide 28 mmol/L (23-31); Chloride 104 mmol/L (98-107); Cholesterol 144 mg/dl (< 200 Desired); Estimated GFR 53; Globulin 3.1 g/dL (2.4-3.5); Glucose 94 mg/dL (80-115); HDL Cholesterol 29 mg/dL (>60 Neg Risk); LDL Cholesterol, Calculated 68 mg/dL; Potassium 4.1 mmol/L (3.5-5.1); Protein, Total 6.4 g/dL (5.8-8.1); Sodium 137 mmol/L (136-145); Triglycerides 235 mg/dL (Less than 150)
[2022-04-08] MEDS ORDERED: Enoxaparin Sodium 40 MG/0.4 ML SYRINGE SC SCH (09:00)
[2022-04-08 12:48] VITALS: TEMP 97.6
[2022-04-08 16:50] VITALS: BP 136/80
[2022-04-08] MEDS ORDERED: Lisinopril/Hydrochlorothiazide 20 mg/12.5 mg Tablet PO SCH (21:00)
[2022-04-08] MEDS ORDERED: Atorvastatin Calcium 40 MG TAB PO SCH (21:00)
[2022-04-08] MEDS ORDERED: Donepezil HCl 10 MG TAB PO SCH (21:00)
[2022-04-09] MEDS ORDERED: Clopidogrel Bisulfate 75 MG TAB PO SCH (09:00)
== END 2022-04-08 16:48 | disposition home or self-care (01) ==
LOC: ERS 19:30 → NEURO 21:46
PROVIDERS: ADMIT Family Medicine; ATTEND Family Medicine
DX: G45.9 Transient cerebral ischemic attack, unspecified (principal); N17.9 Acute kidney failure, unspecified; I10 Essential (primary) hypertension; I25.10 Atherosclerotic heart disease of native coronary artery without angina pectoris; F03.90 Unspecified dementia, unspecified severity, without behavioral disturbance, psychotic disturbance, mood disturbance, and anxiety; I69.311 Memory deficit following cerebral infarction; J32.9 Chronic sinusitis, unspecified; J34.1 Cyst and mucocele of nose and nasal sinus; I08.8 Other rheumatic multiple valve diseases; Z87.891 Personal history of nicotine dependence; Z79.02 Long term (current) use of antithrombotics/antiplatelets; Z79.899 Other long term (current) drug therapy; Z88.2 Allergy status to sulfonamides; Z88.5 Allergy status to narcotic agent; Z95.5 Presence of coronary angioplasty implant and graft; Z20.822 Contact with and (suspected) exposure to COVID-19
CPT/HCPCS: 36415; 70450; 70551; 80053; 80061; 81003; 81015; 83036; 84443; 84484; 85025; 93005; 93306; 96372; G0378; J1650; U0003; U0005

== ENCOUNTER 2022-06-23 10:15 | Outpatient (CLI) | payer BC | END 2022-06-23 10:16 | disposition home or self-care (01) | LOC: PET 10:15 | PROVIDERS: ATTEND Psychiatry & Neurology Neurology | DX: F03.90 Unspecified dementia, unspecified severity, without behavioral disturbance, psychotic disturbance, mood disturbance, and anxiety (principal) | CPT/HCPCS: 78803; A9552 ==

== ENCOUNTER 2025-01-26 17:41 | Emergency (ER) | payer MEDICARE, BC ==
[2025-01-26 18:05] LABS: #Basophils 0.10 10x3/uL (0.0-0.2); #Eosinophils 0.13 10x3/uL (0.0-0.7); #Monocytes 0.68 10x3/uL (0.11-0.59); #Neutrophils 8.63 10x3/uL (1.40-6.50); %Basophils 0.9 % (0.0-1.0); %Eosinophils 1.1 % (0.0-10.0); %Lymphocytes 16.0 % (21.0-51.0); %Monocytes 5.9 % (0.0-10.0); %Neutrophils 75.1 % (42.0-75.0); Hematocrit 50.2 % (42.0-52.0); Hemoglobin 16.0 g/dL (14.0-18.0); Mean Corpuscular Hemoglobin 28.3 pg (27.0-31.0); Mean Corpuscular Volume 88.8 fL (78.0-98.0); Platelet Count 214 10x3/uL (130-400); Red Blood Cell (RBC) Count 5.65 mill/uL (4.70-6.10); White Blood Cell (WBC) Count 11.49 10x3/uL (4.8-10.8)
[2025-01-26 18:24] LABS: Lipase 35 U/L (8-78)
[2025-01-26 18:26] LABS: ALT (SGPT) 24 U/L (Less than 45); AST (SGOT) 18 U/L (11-34); Albumin 3.7 g/dL (3.1-4.5); Alkaline Phosphatase 90 U/L (40-110); Anion Gap 15 mmol/L (10-20); BUN (Urea Nitrogen) 17 mg/dL (8.4-25.7); Bilirubin, Total 0.6 mg/dL (0.3-1.2); CK (CPK) 55 U/L (30-200); Calc. Creatinine Clearance 0 mL/min (70-130); Calcium 10.0 mg/dL (7.8-10.44); Carbon Dioxide 23 mmol/L (23-31); Chloride 104 mmol/L (98-107); Globulin 3.6 g/dL (2.4-3.5); Glucose 98 mg/dL (83-110); Potassium 4.5 mmol/L (3.5-5.1); Sodium 137 mmol/L (136-145)
[2025-01-26 18:27] LABS: Acetaminophen Less than 10 mcg/mL (Less than 10); Salicylate Less than 8.0 mg/dL (Less than 8.0)
[2025-01-26 19:22] LABS: Bacteria/HPF None Seen HPF (None Seen); CAUTI Indications for Culture Dysuria,urgency,freq; Glucose, Urine (Dipstick) Normal (Negative); Leukocyte Negative Leu/uL (Negative); Protein, Urine (Dipstick) Negative (Neg-Trace); RBC/HPF 0-3 HPF (0-3); Specific Gravity, Urine 1.018 (1.002-1.036); WBC/HPF 0-3 HPF (0-3)
[2025-01-26 19:27] LABS: Cocaine Metabolite Screen Negative (Negative); THC/Cannabinoid Screen Negative (Negative); Tricyclic Screen Negative (Negative); Urine Culture Reflex No No
== END 2025-01-26 22:09 | disposition home or self-care (01) ==
LOC: ERS 17:41
DX: Z71.1 Person with feared health complaint in whom no diagnosis is made (principal); F03.90 Unspecified dementia, unspecified severity, without behavioral disturbance, psychotic disturbance, mood disturbance, and anxiety; E78.00 Pure hypercholesterolemia, unspecified; I10 Essential (primary) hypertension; Z55.6 Problems related to health literacy; Z79.899 Other long term (current) drug therapy
CPT/HCPCS: 71045; 80053; 80306; 80307; 81001; 82140; 82550; 83690; 84443; 85025; 93005; 94760